=== PATIENT | female | born 1975 | race Caucasian/White ===

== ENCOUNTER 2023-02-10 12:02 | Emergency (ER) | payer OTHER, SELFPAY ==
[2023-02-10 12:03] VITALS: BP 157/83; PULSE 82; RESP 18; TEMP 36.5; O2SAT 96; BMI 37.2
--- NOTE | 2023-02-10 12:37 | EXP.UTC ---
Discharge Plan Disposition Patient Disposition: Home, Self-Care Condition: Good Prescriptions Prescriptions: New cephalexin 500 mg capsule 500 mg PO QID 7 Days Qty: 28 0RF No Action ketoconazole-salicylic acid 2-2 % shampoo topical dicloxacillin 500 mg capsule 500 mg PO QID Qty: 40 0RF clobetasol [Temovate] 0.05 % ointment 1 applic topical DAILY Qty: 45 3RF Referrals Follow up/Referrals: Provider,Referral, MD [Primary Care Provider] - See instructions Activity Restrictions/Add. Instructions Additional Instructions/Restrictions: *Start antibiotic(s) immediately and be sure to take as ordered for the FULL length of time although you may be feeling better or start to see improvement in the next 24-48 hours *Monitor closely. Outlined redness so that you can monitor easier. Follow up immediately for new or worsening symptoms including but not limited to redness, swelling, streaking from site fever or chills. *Monitor Temp. Tylenol every 4 hours as needed and ibuprofen every 6 hours as needed (as long as your primary care doctor has told you that it is ok to take both. For fever, aches, pain. ER if no less that 101 despite Tylenol and ibuprofen ?Follow up with your family doctor/primary care physician in the next 48-72 hours if no improvement Clinical Impressions Clinical Impression: Cellulitis Qualifiers: Site of cellulitis: unspecified site Qualified Code(s): L03.90 - Cellulitis, unspecified Instructions Patient Instructions: Cellulitis, Cephalexin Discharge ED Provider: Crystal Renee [facility] General Stated complaint: swelling in Rt foot Mode of Arrival: Ambulatory Source of Information: Patient Limitations: No Limitations Time Seen by Provider: 02/10/23 12:37 Description of Symptoms (Recalled from Triage Doc. by RN): Patient reports right ankle swelling for approx 1 month. HEENT Symptoms (Recalled from RN notes): No Resp Symptoms (Recalled from RN notes): No Skin Symptoms (Recalled from RN notes): No MS Symptoms (Recalled from RN notes): Yes Functional Status (Recalled from RN notes): wnl History of Present Illness Provider Complaint: Patient states that she has been having problems with swelling and tenderness on and off in her right lower leg and ankle for the last month States that she noticed she was having little broken vein looking areas in her lower ankle and looking a little red States that she hasnt done anything to hurt it and has been fighting an ingrown toe nail and worried it may be infection or something Related Data Home Medications Medication Instructions Recorded Confirmed ketoconazole 2 %-salicylic acid 2 ea topical 10/13/22 10/13/22 % shampoo Previous Rx's Medication Instructions Recorded clobetasol 0.05 % topical ointment 1 applic topical DAILY #45 grams 10/13/22 (Temovate) dicloxacillin 500 mg capsule 500 mg PO QID #40 caps 10/13/22 cephalexin 500 mg capsule 500 mg PO QID 7 days #28 caps 02/10/23 Allergies Allergy/AdvReac Type Severity Reaction Status Date / Time No Known Allergies Allergy Verified 10/13/22 16:29 Worker's Comp Is this a Worker's Comp case?: No [facility] Disclaimer: The information contained in this section may have been updated after the patient was seen, as this information can be updated by other users. Medical History (Updated 02/10/23 @ 13:21 by Crystal Renee APRN) Left arm numbness Neck pain Family History Father Coronary artery disease Social History (Updated 10/13/22 @ 16:32 by AUDRA Smith) Smoking Status: Never smoker alcohol intake: current substance use type: marijuana current occupational status: employed Travel in the last 8 weeks: None ROS Obtained: Yes All systems reviewed & no additional complaints except as documented and Yes Systems reviewed as appropriate & no additional complaints except as d
--- NOTE | 2023-02-10 12:46 | CA_ITS ---
FINAL REPORT TECHNIQUE: Multiple transverse and longitudinal images were performed of the right femoral-popliteal deep venous system with augmentation and compression maneuvers. CLINICAL HISTORY: swelling right lower leg/ankle, denies trauma, states she has been sitting alot at hospital with her who's receiving chemotherapy. FINDINGS: Right lower extremity duplex ultrasound demonstrates normal flow in the deep venous system. There is no abnormal echogenicity to suggest thrombus. There is normal compression and augmentation. IMPRESSION: No evidence of right DVT. Reviewed, Interpreted and Dictated by Austin Clifton MD Transcribed by Shirley Osborne Authenticated and . [facility]
[2023-02-10 13:29] VITALS: BP 157/83; PULSE 82; RESP 18; TEMP 36.5; O2SAT 96
== END 2023-02-10 13:31 | disposition home or self-care (01) ==
PROVIDERS: Emergency Provider Nurse Practitioner
DX: L03.115 Cellulitis of right lower limb (principal)
CPT/HCPCS: 93971; 99204; 99212; G0463